=== PATIENT | female | born 1980 | race Caucasian/White ===

== ENCOUNTER → 2018-04-15 | Emergency (ER) | payer SELFPAY ==
[~2018-04-15] MED LIST: ALBUTEROL SULFATE 2.5 MG/3 ML NEBU ONE; IBUPROFEN 100 MG/5 ML LIQUID UDC ONE; IPRATROPIUM BROMIDE 0.5 MG/2.5 ML NEBU ONE
== END | disposition home or self-care (01) ==
LOC: ER 18:01
DX: Z53.21 Procedure and treatment not carried out due to patient leaving prior to being seen by health care provider (principal)